=== PATIENT | male | born 1990 | race Caucasian/White ===

== ENCOUNTER 2016-08-17 17:47 | Emergency (ER) | payer OTHER ==
[~2016-08-17] VITALS: Ht 182.9 cm; Wt 72.5 kg
[2016-08-17 17:52] VITALS: Ht 182.9 cm; Wt 72.5 kg
--- NOTE | 2016-08-17 19:55 | ERD ---
ER Documentation Chief Complaint Date/Time DATE: 08/17/16 TIME: 19:53 Chief Complaint left 3rd finger injury today HPI This 26-year-old male sustained injury to his left middle finger today playing dodge ball where his finger was hit with a ball directly. He has no pain but he has some difficulty flexing and extending it and has a deformity. Denies any bleeding lacerations, additional hand, wrist or elbow pain. ROS All systems reviewed and are negative except as per history of present illness. PMhx/Soc Medical and Surgical Hx: pt denies Medical Hx, pt denies Surgical Hx Physical Exam Vitals Vital Signs Date Time Temp Pulse Resp B/P Pulse Ox O2 Delivery O2 Flow Rate FiO2 08/17/16 17:52 98.2 91 18 126/66 96 Physical Exam Const: [] Alert, [id number] per Head: Atraumatic Eyes: Normal Conjunctiva ENT: Normal External Ears, Nose and Mouth. Neck: Full range of motion..~ No meningismus. Resp: Clear to auscultation bilaterally Cardio: Regular rate and rhythm, no murmurs Abd: Soft, non tender, non distended. Normal bowel sounds Skin: No petechiae or rashes Back: No midline or flank tenderness Ext: No cyanosis, or edema. Examination of left middle finger shows a boutonniere deformity. With some deficits to extension of the DIP slight to the PIP. He has difficulty flexing his PIP and DIP initially but is able to resume flexion with partial passive flexion. There is no bleeding or laceration or deformities or tenderness. Neur: Awake and alert Psych: Normal Mood and Affect Procedures/MDM X-ray left middle finger 2V Interpreted by me: Bones: [No fracture] Joints: [No dislocation] Foreign body: [None]. Patient-no fracture dislocation seen a left middle finger x-ray Patient is placed in the left middle finger extension splint. Patient presents with a left middle finger deformity and limited extension suggestive of a tendon slip injury. Patient is advised to wear extension splint and follow-up with orthopedist or hand surgeon. Patient was advised he may need surgery for no improvement with conservative treatment. Patient shows no evidence of bacterial infection, neurologic deficit, fracture, dislocation. Patient was advised he may need authorization from his primary care doctor for specialist visit. Departure Diagnosis: Primary Impression: Finger injury Encounter type: initial encounter Laterality: left Qualified Code: S69.92XA - Finger injury, left, initial encounter Condition: Stable Patient Instructions: Sprain Finger, Tendon Rupture, Finger Referrals: JOSIANE BUSTILLO MD [facility] Additional Instructions: X-ray appears normal. Exam suggests likely tendon slip of finger. Keep finger in extension for 3-4 weeks. See hand surgeon or orthopedist for further evaluation. May need surgery if symptoms persist. BRYANNA HENNESSY MD Aug 17, 2016 19:55
[2016-08-17 20:52] VITALS: BP 127/65; PULSE 73; RESP 19; TEMP 98.6
--- NOTE | 2016-08-18 08:45 | RADRPT ---
PROCEDURE: XR Finger. CLINICAL INDICATION: Trauma. Right third finger pain. TECHNIQUE: Three views. Frontal, lateral, and oblique. COMPARISON: None available FINDINGS: There is no fracture or dislocation. There is flexion deformity of the third distal interphalangeal joint. The soft tissues are normal. Articular surfaces are intact. There is no lytic or blastic lesion. There is no radiopaque foreign body. IMPRESSION: 1. Flexion deformity of the third distal interphalangeal joint. 2. Otherwise unremarkable images of the right third finger. RPTAT: QQ .Ozzy Matta MD, Date Time Electronically viewed and signed by .Ozzy Matta MD, on 08/18/2016 08:45 .R/
== END 2016-08-17 20:52 | disposition home or self-care (01) ==
LOC: FTE 17:47
DX: S69.92XA Unspecified injury of left wrist, hand and finger(s), initial encounter (principal); W21.09XA Struck by other hit or thrown ball, initial encounter; Y92.9 Unspecified place or not applicable
CPT/HCPCS: 29130; 73140; Z7502; Z7610